=== PATIENT | female | born 2000 | race Caucasian/White ===

== ENCOUNTER 2024-10-21 09:35 | Day surgery (SDC) | payer OTHER, SELFPAY ==
--- OUTSIDE RECORDS SUMMARY | 2024-09-28 09:05 | XMS_ITS | Data Portability ---
Author Organization [facility] Address [address] [place] [phone] Assessment Encounter Date Assessment Date Assessment LastModified by Organization Details LastModified Time 09/09/2023 09/09/2023 uses it every da y working at [employer]; likes [employer] at [employer]; less stress. ; not school at this time due to pandemic and being on line is hard. 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 will consider changing if occurs more often no change today considering gcc at age 24. [email or web address] Not available 09/09/2023 11:40:26 11/26/2023 11/26/2023 moving tree and fell down hill while moving away from tree; left knee xray was normal. saw ortho no swelling and rtc 4 weeks if not better. limps on outside of left foot; pain spikes down from the knee downward if puts pressure on whole foot. on could not bend the leg to get up the porch. taking last hour of work off. o; wnwd limping on left leg; not putting foot on the ground getting worse instead of healing. a tiny bit of fluid lat and med to knee cap; stable and neg drawer sign nothing notable ap; left knee pain; re examine, try pt, use crutches and ice it , cont with brace. Not available 11/26/2023 12:25:10 05/12/2024 05/12/2024 stefania is in becau se of her anxiety. the 25 mg is not working of metoprolol and she has slowly increased it to 50 so wants new script. she is willing to retry lexapro; took it in past for depression so discussed use and will get her to same dosing as in past and fu 4 weeks o; wnwd hrt rrr without m lungs cta bp running in normal range with ap; anx and dep working and [email or web address] Not available 05/13/2024 10:34:08 06/09/2024 06/09/2024 stefania is in becau se of her anxiety. the 25 mg is not working of metoprolol and she has slowly increased it to 50 so wants new script. she is willing to retry lexapro; took it in past for depression so discussed use and will get her to same dosing as in past and fu 4 weeks o; wnwd hrt rrr without m lungs cta bp running in normal range with ap; anx and dep working and this election season is weighing on her. avoided work for three days due to trump/ election result [email or web address] Not available 06/09/2024 12:16:08 08/31/2024 08/31/2024 R eye has weak muscles; wearing patch left overcompensating and she is tx to avoid double vision and migraines that come with it. strabismus surgery used prism lens abilify; started enjoying doing things again, but se of fatigue and fuzzy brain is interfereing wants bcp O; wnwd 24 y old hrt rrr without m lungs cta all ap; 1. ; bcp; fu 3 m; discussed how to use and call with questions 2. bp great today 3. depression ; abilify is helping her feel less depressed, b ut making her tired. discussed trial at night, but can't fit that in. discussed trial half tab instead and then work back up. feels helping her to enjoy life but the fatigue and fuzzy brain part is problem [email or web address] Not available 08/31/2024 11:07:34 Plan of Treatment Reminders Order Date Submit Date Provider Last Modified By Organization Details Last Modified Time Details Appointments Pre-Op 2024 10:00A Jevon Bundy NP Not available Not available Not available REGULAR VISIT - 20 MIN 2024 11:00A Jevon Bundy NP Not available Not available Not available Lab None recorded. Referral physical therapist referral 2023 024 [email or web address], [address] [place], [address], 01/02/2024 13:27:58 Procedures None recorded. Surgeries None recorded. Imaging US, knee [address] ([facility]), [address] [place], [address], 12/10/2023 15:39:23 XR, knee, 3 view [address] ([facility]), [address] [place], [address], 12/10/2023 15:39:24 Medication Orders Tri-Estar ylla (28) 0.18 mg(7)/0.2 15 mg(7)/0.2 5 mg(7)-35 mcg tablet 2024 025 [facility], [address] [place] [address], [id number], 09/02/2024 09:15:17 aripipraz ole 2 mg tablet 2023 [facility], [address] [place] [address], [id number], 09/09/2024 15:10:16 Lexapro 20 mg tablet 2023 024 [facility], [address] [place] [address], [address], 08/10/2024 13:22:32 metoprolo l succinate ER 50 mg tablet,ex tended release 24 hr 2023 024 [facility], [address] [place] [address], [address], 08/10/2024 13:22:34 metoprolo l succinate ER 25 mg tablet,ex tended release 24 hr 2023 024 [facility], [address] [place] [address], [address], 05/13/2024 10:38:24 Patient TargetsNo targets recorded. Patient InstructionsNo instructions recorded. Reason for Referral Physical Therapist Referral for Pain of left knee joint Referring Physician: Tahmina Bundy, Family Medicine, Encounter Date: 11/26/2023 Problems Name Problem SNOMED Code Status Onset Date Resolution Date Notes Provider Name and Address Organization Details Recorded Time Pain in throat 290793529 Active Tahmina Bundy NP [address] [place] [address], [phone] , [facility] 5 16:58:34 Cystitis 21362489 Active Tahmina Bundy NP [address] [place] [address], [phone] , [facility] 5 11:22:27 Anxiety 62006127 Active Tahmina Bundy NP [address] [place] [address], [phone] , [facility] 5 12:55:42 Irregular periods 47355193 Active Zeyad Pace MD [address] [place] [address], [phone] , [facility] 6 16:30:17 Irritable bowel syndrome 22870931 Active Tahmina Bundy NP [address] [place] [address], [address] , [facility] 5 12:55:42 Wrist joint pain 582005856 Active Zeyad Pace MD [address] [place] [address], [phone] , [facility] 6 09:06:55 Arthropath y 715996369 Active 2023 Tahmina Bundy NP [address] [place] [address], [address] , [facility] 4 12:06:05 Pain of left knee joint 0099635879720 07 Active 2023 Tahmina Bundy NP [address] [place] [address], [phone] , [facility] 4 12:11:08 Depressive disorder 96497860 Active 2023 Tahmina Bundy NP [address] [place] [address], [address] , [facility] 4 10:33:38 Anxiety state 860878320 Active 2023 Tahmina Bundy NP [address] [place] [address], [phone] , [facility] 4 10:36:20 Problem Notes None recorded. Medical Equipment None Reported. Allergies No known drug allergies Medications Name Sig Start Date Stop Date Status Note LastModified by Organization Details LastModified Time amoxicillin 500 mg caps 01/27 completed Not Available Not Available Not Available tri-linyah 0.18/0.215/ 0.25 mg-35 mcg tabs 01/27 completed Not Available Not Available Not Available chlorhexidi ne gluconate 0.12 % soln 01/27 completed Not Available Not Available Not Available lidocaine/p rilocaine 2.5-2.5 % crea active Not Available Not Available Not Available lorazepam 2 mg tabs 01/27 completed Not Available Not Available Not Available fluoxetine hcl 10 mg caps 01/27 completed Not Available Not Available Not Available amoxicillin 500 mg capsule 01/27 completed Not Available Not Available Not Available medroxyprog esterone 10 mg tablet active Not Available Not Available No t Available Retin-A 0.025 % topical cream APPLY TO THE AFFECTED AREA(S) BY TOPICAL ROUTE ONCE DAILY AT BEDTIME 2020 active Not Available Not Available Not Avai lable metoprolol succinate ER 50 mg tablet,exte nded release 24 hr Take 1 tablet every day by oral route. active Not Available Not Available No t Available phenazopyri dine 200 mg tablet Take 1 tablet 3 times a day by oral route for 2 days. active Not Available Not Available No t Available ciprofloxac in 500 mg tablet Take 1 tablet twice a day by oral route for 5 days. active Not Available Not Available No t Available amoxicillin 500 mg tablet Take 1 tablet every 8 hours by oral route for 5 days. 01/27 completed Not Available Not Available Not Available minocycline 50 mg capsule Take 2 capsules every 12 hours by oral route for 30 days. 2020 active Not Available Not Available Not Avai lable fluoxetine 10 mg capsule Take 1 capsule every day by oral route. 01/27 completed Not Available Not Available Not Available Emla 2.5 %-2.5 % topical cream Apply 1 applicati on as needed by topical route. 12/26 completed Not Available Not Available Not Available metoprolol succinate ER 25 mg tablet,exte nded release 24 hr Take 1 tablet every day by oral route for 90 days. 05/13 completed Not Available Not Available Not Available escitalopra m 10 mg tablet Take 1 tablet every day by oral route. 12/01 completed Not Available Not Available Not Available escitalopra m 20 mg tablet Take 1 tablet every day by oral route. active Not Available Not Available No t Available metoprolol tartrate 25 mg tablet Take 25 mg twice a day by oral route. 05/13 completed Not Available Not Available Not Available drospirenon e 3 mg-ethinyl estradiol 0.02 mg tablet active Not Available Not Available Not Available aripiprazol e 2 mg tablet Take 1 tablet every day by oral route for 30 days. active Not Available Not Available No t Available Tri-Estaryl la (28) 0.18 mg(7)/0.215 mg(7)/0.25 mg(7)-35 mcg tablet Take 1 tablet every day by oral route for 90 days. active Not Available Not Available No t Available Vitals Date Recorded Heart rate Systolic blood pressure Diastolic blood pressure Provider Name and Address Organization Details Last Updated DateTime 06/09/2024 65 /min 113 mm[Hg] 81 mm[Hg] Tahmina Bundy NP [address] [place] [address], [phone], [facility] 06/09/2024 11:22:24 Date Recorded Heart rate Systolic blood pressure Diastolic blood pressure Provider Name and Address Organization Details Last Updated DateTime 08/31/2024 72 /min 123 mm[Hg] 86 mm[Hg] Tahmina Bundy NP [address] [place] [address], [address], [facility] 08/31/2024 10:54:25 Date Recorded Systolic blood pressure Diastolic blood pressure Provider Name and Address Organization Details Last Updated DateTime 09/09/2023 140 mm[Hg] 82 mm[Hg] Tahmina Bundy NP [address] [place] [address], [phone], [facility] 09/09/2023 11:40:03 Social History Question Answer Notes LastModified by Organizat ion Details LastModified Time Tobacco Smoking Status Never Smoker Not Available [facility] 05/31/2020 03:12:40 What Is Your Level Of Alcohol Consumption? None [id number] Information not available 05/31/2020 Animal Exposure? Yes Dogs Informat ion not available 10/21/2014 What Is Your Level Of Caffeine Consumption? Moderate [id number] Information not available 05/31/2020 How Much Tobacco Do You Chew? None [id number] Information not available 05/31/2020 What Type Of Crop Farmers Do You Use? None [id number] Information not available 05/31/2020 What Type Of Diet Are You Following? REGULAR [id number] Information not available 05/31/2020 Are There Any Guns Present In Your Home? No [id number] Information not available 05/31/2020 What Is Your Home Situation? Mother [id number] Information not available 05/31/2020 Do You Use Insect Repellent Routinely? Yes [id number] Information not available 05/31/2020 What Is Your Parents' Marital Status? Unmarried [id number] Information not available 05/31/2020 What Is The Name Of Your School? [employer] [id number] Information not available 05/31/2020 Do You Use Your Seat Belt Or Car Seat Routinely? Yes [id number] Information not available 05/31/2020 Are You Sexually Active? No [id number] Information not available 05/31/2020 Do You Have Any Siblings? Sister [id number] Information not available 05/31/2020 Do You Have Smoke And Carbon Monoxide Detectors In Your Home? Yes [id number] Information not available 05/31/2020 Are You Passively Exposed To Smoke? Yes Information not available 10/21/2014 What Types Of Sporting Activities Do You Participate In? Track [id number] Information not available 05/31/2020 Do You Use Sunscreen Routinely? No [id number] Information not available 05/31/2020 Year In School 10 Informatio n not available 10/21/2014 Sex: Unknown Functional Status Question Answer Note LastModified by Organization D etails LastModified Time What is your exercise level? Moderate [id number] Information not available 05/31/2020 Mental Status None recorded. Family History Nothing Reported. Medical History No medical history recorded. Gynecological History Statement/Question Response Menses Monthly N Duration of Flow (days) Flow Heavy Age at Menarche 11 Date of LMP 10/15/2014 Obstetrics History GPAL:G 0 P 0 0 0 0 Immunizations Vaccine Type Date Status Note Provider Nam dalia and Address Organization Details Recorded Time SARS-COV-2 (COVID-19) vaccine, UNSPECIFIED 1 completed Zeyad Pace MD [address] [place] [address], [address], [facility] 12/01/2020 11:29:57 SARS-COV-2 (COVID-19) vaccine, UNSPECIFIED 1 completed Zeyad Pace MD [address] [place] [address], [address], [facility] 12/01/2020 11:30:23 Past Encounters Encounter ID Performer Location Encounter Start Date Encounter Closed Date Diagnosis/Indication Diagnosis SNOMED-CT Code Diagnosis ICD10 Code Diagnosis Note [id number] [address] 09/23/2014 10:42:36 09/23/2014 14:30:33 Pain in throat [id number] Tahmina Bundy NP [address] [address] 10/21/2014 09:36:58 10/21/2014 10:51:09 Cystitis 47738264 [id number] Jaylon Young [address] [address] 03/24/2015 11:46:01 03/24/2015 12:42:13 Anxiety 91578573 uses .5 mg ativan for visits only. severe anx re; imm. Irregular periods 14599094 Irritable bowel syndrome 56450884 relates to sometimes milk;l if difficulty managing sx, we could consider treating/ sending to gi. pt will keep a diary about sx to assess [id number] Zeyad Pace MD [address] [address] 10/25/2015 08:51:26 10/25/2015 09:09:00 Wrist joint pain 068185564 M25.539 [id number] Tahmina Bundy NP [address] [address] 04/30/2016 10:19:21 04/30/2016 11:33:55 Well child 822574932 Z00.129 Lymphadenopathy 79621823 R59.9 cruz in 3 weeks [id number] Tahmina Bundy NP [address] [address] 06/12/2016 12:44:02 06/12/2016 13:39:03 Abscess 489645208 L02.91 [id number] Tahmina Bundy NP [address] [address] 02/25/2017 11:36:08 02/25/2017 17:16:45 Anxiety 78838259 F41.9 uses .5 mg ativan for visits only. severe anx re; imm. [id number] Tahmina Bundy NP [address] [address] 01/27/2018 12:18:43 01/27/2018 12:49:01 Anxiety 36278257 F41.9 uses .5 mg ativan for visits only. severe anx re; imm. [id number] Tahmina Bundy NP [address] [address] 01/08/2019 11:14:01 01/08/2019 11:56:34 Anxiety 45458547 F41.9 Depressive disorder 3548 9007 F32.9 [id number] Tahmina Bundy NP [address] [address] 04/06/2019 10:41:07 04/06/2019 11:29:01 Anxiety 57871330 F41.9 Depressive disorder 3548 9007 F32.9 [id number] Tahmina Bundy NP [address] [address] 12/01/2020 09:50:25 12/01/2020 10:38:53 Cystic acne 20255966 L70.0 Anxiety 03348735 F41.9 [id number] Tahmina Bundy NP [address] [address] 12/26/2021 11:40:05 12/26/2021 12:24:28 Anxiety 55770875 F41.9 [id number] Tahmina Bundy NP [address] [address] 09/09/2023 10:42:39 09/10/2023 12:49:01 Anxiety 25834525 F41.9 [id number] Tahmina Bundy NP [facility] [address] [address] 11/26/2023 11:39:45 11/26/2023 12:25:25 Pain of left knee joint 2675470812 08005 M25.562 [id number] Tahmina Bundy NP [address] [address] 05/12/2024 11:23:54 05/12/2024 11:59:43 Anxiety 99428991 F41.9 Depressive disorder 3548 9007 F32.9 Anxiety state 456439070 F41.1 [id number] Tahmina Bundy NP [address] [address] 06/09/2024 11:10:29 06/09/2024 12:18:09 Anxiety 08381052 F41.9 Depressive disorder 3548 9007 F32.9 [id number] Tahmina Bundy NP [address] [address] 08/31/2024 10:23:44 08/31/2024 11:05:06 Anxiety state 938245932 F41.1 Surveillan ce of oral contraception 039683882 Z30.41 Health Concerns Section Related Observation LastModified by Organization Detai ls LastModified Time None Recorded Concern Status LastModified by Organization Details LastModified Time None Recorded Advance Directives Directive None Recorded Payers Encounter Date Sequence Insurance Name Policy Number Policy Feliz Covered Member ID Feliz Member ID Guarantor Name 09/09/2023 1 [place] Stefania Reyes [id number] Stefania Reyes 11/26/2023 1 [id number] Stefania Reyes [id number] Stefania Reyes 05/12/[address] [place], [place] [id number] Stefania Mecca Mckenzie Musante [id number] Stefania Magaly Musante 06/09/[address] [place], [place] [id number] 6 Stefania Mecca Mckenzie Musante [id number] Stefania Magaly Musante 08/31/[address] [place], [place] [id number] 6 Stefania Mecca Mckenzie Musante [id number] Stefania Owenante OBGyn Episode No OBEpisode recorded.
--- OUTSIDE RECORDS SUMMARY | 2024-09-28 09:05 | XMS_ITS | Continuity of Care Document ---
Author Organization [facility] Address [address] [place] [id number] Assessment Encounter Date Assessment Date Assessment LastModified by Organization Details LastModified Time 08/31/2024 08/31/2024 R eye has weak muscles; [...] fatigue and fuzzy brain part is problem [email or web address] Not available 08/31/2024 11:07:34 Plan of Treatment Reminders Order Date Submit Date Provider Last Modified By Organization Details Last Modified Time Details Appointments Pre-Op 2024 10:00A M Tahmina Bundy NP Not available Not available Not available REGULAR VISIT - 20 MIN 2024 11:00A M Tahmina Bundy NP Not available Not available Not available Lab None recorded . Referral None recorded . Procedures None recorded . Surgeries None recorded . Imaging None recorded . Medication Orders Tri-Esta rylla (28) 0.18 mg(7)/0. 215 mg(7)/0. 25 mg(7)-35 mcg tablet 2024 025 VALERIA [facility], [address] [place] [address], [id number], 09/02/2024 09:15:17 Patient TargetsNo targets recorded. Patient InstructionsNo instructions recorded. Reason for Referral None Reported. Problems Name Problem SNOMED Code Status Onset Date Resolution Date Notes Provider Name and Address Organization Details Recorded Time Pain in throat 061310740 Active Tahmina Bundy NP [address] [place] [address], [phone] , [facility] 5 16:58:34 Cystitis 40360674 Active Tahmina Bundy NP [address] [place] [address], [phone] , [facility] 5 11:22:27 Anxiety 06352944 Active Tahmina Bundy NP [address] [place] [address], [phone] , [facility] 5 12:55:42 Irregular periods 99406103 Active Zeyad Pace MD [address] [place] [address], [phone] , [facility] 6 16:30:17 Irritable bowel syndrome 00788598 Active Tahmina Bundy NP [address] [place] [address], [phone] , [facility] 5 12:55:42 Wrist joint pain 140458901 Active Zeyad Pace MD [address] [place] [address], [address] , [facility] 6 09:06:55 Arthropath y 774314406 Active 2023 Tahmina Bundy NP [address] [place] [address], [address] , [facility] 4 12:06:05 Pain of left knee joint 3108904348621 07 Active 2023 Tahmina Bundy NP [address] [place] [address], [address] , [facility] 4 12:11:08 Depressive disorder 82234762 Active 2023 Tahmina Bundy NP [address] [place] [address], [phone] , [facility] 4 10:33:38 Anxiety state 698533199 Active 2023 Tahmina Bundy, CHRIS [address] [place] [address], [phone] , [facility] 4 10:36:20 Problem Notes None recorded. Medical Equipment None Reported. Allergies No known drug allergies Medications Name Sig Start Date Stop Date Status Note LastModified by Organization Details LastModified Time amoxicillin 500 mg caps 01/27 completed Not Available Not Available Not Available lidocaine/p rilocaine 2.5-2.5 % crea active Not Available Not Available Not Available tri-linyah 0.18/0.215/ 0.25 mg-35 mcg tabs 01/27 completed Not Available Not Available Not Available lorazepam [...] 72 /min 123 mm[Hg] 86 mm[Hg] Tahmina Bundy, CHRIS [address] [place] [address], [phone], [place] [facility] 08/31/2024 10:54:25 Social History Question Answer Notes LastModified by Organizat ion Details LastModified Time Tobacco Smoking Status Never Smoker Not Available [employer] 05/31/2020 03:12:40 What Is Your Level Of Alcohol Consumption? None [id number] Information not available 05/31/2020 Animal Exposure? Yes Dogs andrea Informat ion not available 10/21/2014 What Is Your Level Of Caffeine Consumption? Moderate [id number] Information not available 05/31/2020 How Much Tobacco Do You Chew? None [id number] Information not available 05/31/2020 What Type Of Content Management Consultant Do You Use? None [id number] Information not available 05/31/2020 What Type Of Diet Are You Following? REGULAR [id number] Information not available 05/31/2020 Are There Any Guns Present In Your Home? No [id number] Information not available 05/31/2020 What Is Your Home Situation? Mother [id number] Information not available 05/31/2020 Do You Use Insect Repellent Routinely? Yes [id number] Information not available 05/31/2020 What Is Your Parents' Marital Status? Unmarried [id number] Information not available 05/31/2020 What Is The Name Of Your School? [employer] [id number] Information not available 05/31/2020 Do You Use Your Seat Belt Or Car Seat Routinely? Yes [id number] Information not available 05/31/2020 Are You Sexually Active? No [id number] Information not available 05/31/2020 Do You Have Any Siblings? Sister [id number] Information not available 05/31/2020 Do You Have Smoke And Carbon Monoxide Detectors In Your Home? Yes [id number] Information not available 05/31/2020 Are You Passively Exposed To Smoke? Yes Information not available 10/21/2014 What Types Of Sporting Activities Do You Participate In? Track [id number] Information not available 05/31/2020 Do You Use Sunscreen Routinely? No [id number] Information not available 05/31/2020 Year In School 10 Informatio n not available 10/21/2014 Sex: Unknown Functional Status Question Answer Note LastModified by Organization D etails LastModified Time What is your exercise level? Moderate [id number] Information not available 05/31/2020 Mental Status None recorded. Family History Nothing Reported. Medical History No medical history recorded. Gynecological History Statement/Question Response Menses Monthly N Duration of Flow (days) Flow Heavy Age at Menarche 11 Date of LMP 10/15/2014 Obstetrics History GPAL:G 0 P 0 0 0 0 Immunizations Vaccine Type Date Status Note Provider Kp gómez and Address Organization Details Recorded Time SARS-COV-2 (COVID-19) vaccine, UNSPECIFIED completed Zeyad Pace MD [address] [place] [address], [phone], [facility] 12/01/2020 11:29:57 SARS-COV-2 (COVID-19) vaccine, UNSPECIFIED completed Zeyad Pace MD [address] [place] [address], [phone], [facility] 12/01/2020 11:30:23 Past Encounters Encounter ID Performer Location Encounter Start Date Encounter Closed Date Diagnosis/Indication Diagnosis SNOMED-CT Code Diagnosis ICD10 Code Diagnosis Note [id number] Tahmina Bundy NP [facility] [address] [place] [phone] 08/31/2024 10:23:44 08/31/2024 11:05:06 Anxiety state 668708838 F41.1 Surveillan ce of oral contraception 623403286 Z30.41 Health Concerns Section Related Observation LastModified by Organization Detai ls LastModified Time None Recorded Concern Status LastModified by Organization Details LastModified Time None Recorded Payers Encounter Date Sequence Insurance Name Policy Number Policy Feliz Covered Member ID Feliz Member ID Guarantor Name 08/31/[address] [place] [address] [id number] Stefania Reyes [id number] Stefania Reyes OBGyn Episode No OBEpisode recorded.
[2024-10-15 07:19] VITALS: BMI 27.4
[2024-10-21 10:15] VITALS: BMI 27.4
[2024-10-21 10:21] VITALS: BP 114/75; PULSE 84; RESP 20; TEMP 36.6; O2SAT 100
[2024-10-21 10:35] LABS: UPreg QC Valid YES; Urine Pregnancy NEGATIVE (NEGATIVE)
--- NOTE | 2024-10-21 11:10 | P.CONAN_ITS ---
HPI - Anesthesia Eval Consult details Narrative: 24 yo F presenting for bilateral medial eye muscle recession/resection [facility] Past Medical History Medical History (Updated 10/15/24 @ 07:18 by Maryana Armijo RN) Pain in joint of left knee Wrist joint pain Arthropathy Irregular periods Cystitis IBS (irritable bowel syndrome) Visual disturbance Anxiety Depression Family History Family history of problems with anesthesia: No Surgical History History of Problems with Anesthesia: No Social History Social History Are you a primary daycare director to a significant other at home: No Do you presently have visiting nurse or other home services: No Patient Tobacco Use Status: Never used Tobacco Use of substances other than those prescribed or required for medical reasons: No Are you DNR?: No Advance Directives: No Advance Directives Information Provided: Yes Advance Directives on File: No Nutrition Risks: No Nutritional Risk Meds Allergies Allergy/AdvReac Type Severity Reaction Status Date / Time No Known Allergies Allergy Verified 10/21/24 10:15 Active Medications: Current Medications Acetaminophen (Acetaminophen 325 Mg Tablet) 650 mg PO ONCE PRN PRN Reason: Pain, Mild (Pain Scale 1-3) Stop: 10/21/24 16:52 Fentanyl (Fentanyl Citrate/Pf 100 Mcg/2 Ml Vial) 50 mcg IVPUSH Q5M PRN PRN Reason: Pain, Moderate to Severe (Pain Scale 4-10) Stop: 10/21/24 16:52 Haloperidol Lactate (Haloperidol Lactate 5 Mg/Ml Vial) 1 mg IVPUSH ONCE PRN PRN Reason: intractable nausea Stop: 10/21/24 16:52 Lactated Ringer's (Lr) 1,000 mls @ 100 mls/hr IVCONT .Q10H MARTINA Naloxone HCl (Naloxone Hcl 0.4 Mg/Ml Vial) 0.04 mg IVPUSH Q5M PRN PRN Reason: Excessive sedation or RR < 8 Oxycodone HCl (Oxycodone Hcl Immed Release 5 Mg Tablet) 5 mg PO ONCE PRN PRN Reason: Pain, Moderate(Pain Scale 4-6) if no IV Access Stop: 10/21/24 16:52 Home Medications ?Medication ?Instructions ?Recorded ?Confirmed ?Last Taken ?Type escitalopram oxalate 20 mg tablet 20 mg PO DAILY 10/15/24 10/15/24 Unknown History lidocaine-prilocaine 2.5 %-2.5 % 1 appl topical DAILY 10/15/24 10/15/24 Unknown History topical cream metoprolol succinate 50 mg 50 mg PO DAILY 10/15/24 10/15/24 Unknown History tablet,extended release 24 hr norgestimate-ethinyl estradiol 1 tab PO DAILY 10/15/24 10/15/24 Unknown History 0.18 mg/0.215mg/0.25mg-35 mcg(28)tablet (Tri-Estarylla) tretinoin 0.025 % topical cream 1 appl topical BEDTIME 10/15/24 10/15/24 Unknown History (Retin-A) Exam Exam Date and Time: 10/21/24 1056 Height,Weight and Vital Signs: Height 5 ft 7.25 in Weight 79.832 kg Last Vital Signs Temp 97.8 F 10/21/24 10:21 Pulse 84 10/21/24 10:21 Resp 20 10/21/24 10:21 BP 114/75 10/21/24 10:21 Pulse Ox 100 10/21/24 10:21 O2 Del Method Room Air 10/21/24 10:21 Pertinent Lab Results Pertinent Lab Results: Laboratory Tests 10/21/24 10:10 Urine Test NEGATIVE Airway Mallampati Class: III (micrognathic, small palate) TM Dist: <=3cm Neck ROM: Full Loose/Missing/Broken Teeth: No (patient denies any loose or broken teeth) Heart: S1S2 Lungs: CTAB Assessment and Plan Assessment Anesthesia Assessment: Anesthesia Plan Discussed and Chart Reviewed Final Anesthetic Review Family History of Problems with Anesthesia: No History of Problems with Anesthesia: No NPO: Yes ASA Class: II Final Preanesthetic Review: No Changes in Pt Med Stat, Meds/Allgs Chart Reviewed, Consent Obtained/Reviewed and Anes Risks/Benef Reviewed Patient Risk: Low Procedure Risk: Low Anesthetic Plan Anesthetic Plan: GA and Agree w/ Assess. and Plan Disposition: Standard PACU
[2024-10-21 11:53] VITALS: BP 122/71; PULSE 86; RESP 16; TEMP 36.2; O2SAT 100
[2024-10-21 11:58] VITALS: BP 119/69; PULSE 99; RESP 16; O2SAT 97
--- NOTE | 2024-10-21 12:02 | P.OPHTHAL_ITS ---
Ophthalmology Operative Note Date of Service: 10/21/24 Narrative: Diagnosis esotropia. Postoperative diagnosis same. Procedure bilateral lateral rectus resections of [address] Ruth. Anesthesia general. Complications none. The patient was brought to the operative room and placed under general anesthesia. The eyes were prepped and draped in the usual sterile ophthalmic fashion. A lid speculum was placed in the right eye and incisions made at bare sclera in the inferotemporal fornix. The lateral rectus was hooked and dissected free of its surrounding fascial attachments. It was grasped at the insertion with a muscle clamp and a 7 mm resection was marked off with elise white. The resection point was secured with a double-armed Vicryl suture and the distal muscle resected. The resection point was then drawn forward to the original insertion using the suture. Conjunctiva was closed with interrupted Vicryl sutures. An identical procedure was then performed on the left eye. The patient was then awoken from general anesthesia and discharged to postoperative recovery in good condition.
[2024-10-21 12:03] VITALS: BP 112/66; PULSE 98; RESP 16; O2SAT 100
[2024-10-21 12:08] VITALS: BP 113/61; PULSE 102; RESP 16; O2SAT 96
[2024-10-21 12:23] VITALS: BP 113/69; PULSE 89; RESP 16; O2SAT 96
== END 2024-10-21 12:44 | disposition home or self-care (01) ==
PROVIDERS: Anesthesiology; PCP Family Medicine; Visit Provider Ophthalmology
PROC: (CPT 67311; principal; 2024-10-21 12:00)
DX: H50.05 Alternating esotropia (principal); H53.9 Unspecified visual disturbance; F32.A Depression, unspecified; F41.9 Anxiety disorder, unspecified; Z79.899 Other long term (current) drug therapy
CPT/HCPCS: 67311; 81025; J1100; J1596; J1885; J2003; J2250; J2405; J2704; J3010